=== PATIENT | female | born 1990 | race American Indian/Alaskan Native ===

== ENCOUNTER 2020-04-08 18:54 | Emergency (ER) | payer MEDICAID ==
[2020-04-08 19:02] VITALS: BP 115/76
[2020-04-08 21:24] LABS: Bacteria,Urine 4+ /HPF (Negative); Bilirubin,Urine NEG (Negative); Blood,Urine LG (Negative); Color,Urine Yellow (Yellow); Mucus,Urine 3+ /HPF
--- NOTE | 2020-04-08 21:28 | Emergency Department Report ---
ED HPI - General Chief complaint: Vaginal Bleeding Stated complaint: PREG BLEEDING Time Seen by Provider: 04/08/20 21:10 Source: patient Mode of arrival: Ambulatory Limitations: No Limitations - History of Present Illness Initial comments: Patient is a 29-year-old female that presents emergency room with complaints of vaginal bleeding. Patient states the vaginal bleeding started this morning around 10 AM. Patient states that she is 6 to 7 weeks . Patient states she has not had any REPAIR SPECIALIST care for this . Patient states this is her third . Patient denies abdominal pain. Patient denies cramps. Patient states that the bleeding is heavy. Patient denies clots. Patient denies fever and chills. Patient denies dysuria. Patient denies recent travel. Patient denies recent international travel. Patient denies exposure to the novel coronavirus. Patient denies sick contacts. Patient denies fever and chills. Patient denies cough. Patient denies diarrhea. Patient denies coming in contact with anybody with symptoms of the novel coronavirus. MD Complaint: vaginal bleeding -: Sudden Severity: severe Severity scale (0 -10): 0 Improves with: none Worsens with: none Associated symptoms: vaginal bleeding. denies: nausea/vomiting, vaginal discharge, abdominal pain, dysuria, headache, vision changes, malaise, dysparuenia, rash, seizure, shortness of breath, syncope, weakness Vaginal bleeding: heavy :: Yes Number of weeks : 6 OB History - Current : no complications OB History - Previous Pregnancies: no complications Pre-candace care: none - Related Data : 3 Para: 2 Previous Rx's Medication Instructions Recorded Last Taken Type Iron Fum,Ps/Folic/Bcomp,C No.9 1 each PO BID 30 Days #60 capsule 04/08/20 Unknown Rx [Integra Plus Capsule] Allergies Allergy/AdvReac Type Severity Reaction Status Date / Time No Known Allergies Allergy Unverified 04/08/20 18:59 ED Review of Systems ROS: Stated complaint: PREG BLEEDING Other details as noted in HPI Constitutional: denies: chills, fever Eyes: denies: eye pain, eye discharge, vision change ENT: denies: ear pain, throat pain Respiratory: denies: cough, shortness of breath, wheezing Cardiovascular: denies: chest pain, palpitations Endocrine: no symptoms reported Gastrointestinal: denies: abdominal pain, nausea, diarrhea Genitourinary: denies: urgency, dysuria, discharge Musculoskeletal: denies: back pain, joint swelling, arthralgia Skin: denies: rash, lesions Neurological: denies: headache, weakness, paresthesias Psychiatric: denies: anxiety, depression Hematological/Lymphatic: denies: easy bleeding, easy bruising ED Past Medical Hx - Past Medical History Previous Medical History?: No - Surgical History Past Surgical History?: No - Family History Family history: no significant - Social History Smoking Status: Never Smoker Substance Use Type: None - Medications Home Medications: Home Medications Medication Instructions Recorded Confirmed Last Taken Type Iron Fum,Ps/Folic/Bcomp,C No.9 1 each PO BID 30 Days #60 capsule 04/08/20 Unknown Rx [Integra Plus Capsule] ED Physical Exam - General Limitations: No Limitations General appearance: alert, in no apparent distress - Head Head exam: Present: atraumatic, normocephalic - Eye Eye exam: Present: normal appearance - ENT ENT exam: Present: mucous membranes moist - Neck Neck exam: Present: normal inspection - Respiratory Respiratory exam: Present: normal lung sounds bilaterally. Absent: respiratory distress - Cardiovascular Cardiovascular Exam: Present: regular rate, normal rhythm. Absent: systolic murmur, diastolic murmur, rubs, gallop - GI/Abdominal GI/Abdominal exam: Present: soft, normal bowel sounds - Extremities Exam Extremities exam: Present: normal inspection - Back Exam Back exam: Present: normal inspection - Neurological Exam Neurological exam: Present: alert, oriented X3 - Psychiatric Psychiatric exam: Present: normal affect, normal mood - Skin Skin exam: Present: warm, dry, intact, normal color. Absent: rash ED Course Vital Signs 04/08/20 18:58 Temperature 98.6 F Pulse Rate 89 Respiratory 16 Rate Blood Pressure 115/76 [Right] O2 Sat by Pulse 100 Oximetry - Reevaluation(s) Reevaluation #1: I discussed all results and clinical findings with patient. I discussed plan of care with patient. Patient agrees with plan of care. Patient is stable for discharge. Patient will be discharged home. Patient given discharge instructions. Patient voiced understanding of discharge instructions. 04/08/20 23:40 - Consultations Consultation #1: REPAIR SPECIALIST paged 04/08/20 23:41 ED Medical Decision Making - Lab Data Result diagrams: 04/08/20 21:22 04/08/20 19:36 - Radiology Data Radiology results: report reviewed OB ultrasound first trimester INDICATION: and bleeding FINDINGS: Transabdominal and transvaginal imaging is performed. The uterus measures 7.9 cm in length. Endometrial stripe measures 11 mm. There is some fluid in the endometrial cavity but no pole or yolk sac is seen. The fluid in the endometrial cavity is irregular. A normal gestational sac is not identified. The right ovary measures 3.5 cm in the left ovary measures 3.6 cm. There is a 1.6 cm cyst in the left ovary. There is a 4.2 cm cystic lesion in the left adnexa adjacent to the urinary bladder. This appears to be separate from the left ovary There is a small amount of free fluid. IMPRESSION: There is some fluid within the endometrial cavity. No definite intrauterine is seen. Correlation with serial serum beta hCG level is suggested. Follow-up ultrasound should be obtained as clinically warranted. There is a 4.2 cm cystic structure in the left adnexa which appears to be separate from ovary. - Medical Decision Making Patient is a 29-year-old female that presents emergency room with complaints of vaginal bleeding and being 6 7 weeks . Patient has no prior OB care for this . Patient had labs done and an ultrasound done. Patient's labs were essentially unremarkable except for anemia. Patient instructed to take oral iron supplements as prescribed. Patient had an ultrasound done which showed no IUP. Differentials on the ultrasound were possible early and a threatened miscarriage. On ultrasound no signs of ectopic . I discussed case with the on-call REPAIR SPECIALIST and established follow-up care for the patient. Recommendations were received from the on-call REPAIR SPECIALIST. Patient stable for discharge from an ER and a gynecologic standpoint. Patient will require further evaluation as an outpatient with the REPAIR SPECIALIST that I consulted. Patient given discharge instructions. Patient stable for discharge. - Differential Diagnosis Miscarriage, threatened miscarriage, vaginal bleeding and Critical care attestation.: If time is entered above; I have spent that time in minutes in the direct care of this critically ill patient, excluding procedure time. ED Disposition Clinical Impression: Vaginal bleeding affecting early , Threatened miscarriage Qualifiers: Weeks of gestation: less than 8 weeks Qualified Code(s): Z3A.01 - Less than 8 weeks gestation of Anemia Qualifiers: Anemia type: unspecified type Qualified Code(s): D64.9 - Anemia, unspecified Disposition: DC-01 TO HOME OR SELFCARE Is pt being admited?: No Does the pt Need Aspirin: No Condition: Stable Instructions: Threatened Miscarriage (ED), Iron Rich Diet (ED), Iron Deficiency Anemia (ED), Anemia (ED) Additional Instructions: Patient to follow-up with primary care in 2 to 3 days. Patient to follow-up with REPAIR SPECIALIST in 2 to 3 days. Patient will require hCG checks as well as CBC checks. Patient start a vitamin. Nothing per vagina until cleared by REPAIR SPECIALIST. Patient to rest. Patient to increase water. Patient to avoid strenuous exercise or heavy lifting until cleared by REPAIR SPECIALIST. Patient to take Tylenol as needed for pain. Patient to take meds as directed. Patient to return to the ER if condition worsens, changes or new symptoms arise. Prescriptions: Iron Fum,Ps/Folic/Bcomp,C No.9 [Integra Plus Capsule] 1 each PO BID 30 Days #60 capsule Referrals: PRIMARY MD ABRAHAM [Primary Care Provider] - 2-3 Days BASSEM MEDINA MD [Staff Physician] - 2-3 Days Time of Disposition: 23:37
[2020-04-08 22:00] LABS: Hematocrit 24.2 % (30.3-42.9); Hemoglobin 7.2 gm/dl (10.1-14.3); Mean Corpuscular HGB Conc 30 % (30-34); Mean Corpuscular Volume 70 fl (79-97); Platelet Count 203 K/mm3 (140-440); Red Blood Count 3.46 M/mm3 (3.65-5.03); Red Cell Distribution Width 29.1 % (13.2-15.2)
[2020-04-08 22:33] LABS: Anisocytosis 3+; Hypochromasia 2+; Platelet Estimate Consistent w Auto; Total Cells Counted 100
--- NOTE | 2020-04-08 23:11 | Ultrasound Report ---
OB ultrasound first trimester INDICATION: and bleeding FINDINGS: Transabdominal and transvaginal imaging is performed. The uterus measures 7.9 cm in length. Endometrial stripe measures 11 mm. There is some fluid in the e ndometrial cavity but no pole or yolk sac is seen. The fluid in the endometrial cavity is irreg ular. A normal gestational sac is not identified. The right ovary measures 3.5 cm in the left ovary measures 3.6 cm. There is a 1.6 cm cyst in the left ovary. There is a 4.2 cm cystic lesion in the left adnexa adjacent to the urinary bladder. This appears to b e separate from the left ovary There is a small amount of free fluid. IMPRESSION: There is some fluid within the endometrial cavity. No definite intrauterine is seen. Correl ation with serial serum beta hCG level is suggested. Follow-up ultrasound should be obtained as clini kulwant warranted. There is a 4.2 cm cystic structure in the left adnexa which appears to be separate from ovary. Signer Name: Héctor Wolfe MD Signed: 04/08/2020 11:07 PM Workstation Name: [id number]
[2020-04-08 23:25] LABS: Alanine Aminotransferase 44 units/L (7-56); Albumin 4.1 g/dL (3.9-5); BUN/Creatinine Ratio 20; Blood Urea Nitrogen 12 mg/dL (7-17); Calcium 8.5 mg/dL (8.4-10.2); Hemolysis Index 2
== END 2020-04-08 23:58 | disposition home or self-care (01) ==
LOC: ED 18:54
DX: O20.0 Threatened abortion (principal); D64.9 Anemia, unspecified; Z3A.01 Less than 8 weeks gestation of pregnancy
CPT/HCPCS: 36415; 76801; 76817; 80053; 81001; 84702; 84703; 85007; 85025; 86900; 86901; 87076; 87086; 87186